=== PATIENT | female | born 2000 | race African-American/Black ===

== ENCOUNTER 2022-08-05 04:50 | Inpatient (IN) | payer MEDICAID ==
[~2022-08-05] VITALS: Ht 162.6 cm; Wt 70.3 kg
[2022-08-05] MEDS ORDERED: MORPHINE SULFATE 5 MG/ML VIAL IVP PRN (05:20)
[2022-08-05] MEDS ORDERED: METHYLERGONOVINE 0.2 MG/ML AMP IM PRN (05:20)
[2022-08-05] MEDS ORDERED: ONDANSETRON 4 MG/2 ML VIAL IVP PRN (05:20)
[2022-08-05] MEDS ORDERED: OXYTOCIN 20 UNITS in LACTATED RINGERS 1,000 ML IV SCH (05:20)
[2022-08-05] MEDS ORDERED: CARBOPROST 250 MCG/ML AMP IM PRN (05:20)
[2022-08-05] MEDS: LACTATED RINGERS 1,000 ML IV SCH ×4 (05:34→18:39)
[2022-08-05 05:54] LABS: BASOPHILS % (AUTO) 0.4 % (0.0-2.0); EOSINOPHILS # (AUTO) 0.1 K/uL (0-0.4); EOSINOPHILS % (AUTO) 0.5 % (0.0-4.0); HEMATOCRIT 28.1 % (36-48); HEMOGLOBIN 9.5 g/dL (12.0-16.0); LYMPHOCYTES # (AUTO) 1.3 K/uL (2.5-16.5); LYMPHOCYTES % (AUTO) 10.9 % (20.5-51.1); MEAN CORPUSCULAR HEMOGLOBIN 25 pg (27-31); MEAN CORPUSCULAR HGB CONC 34 g/dL (33-37); MEAN CORPUSCULAR VOLUME 75.1 fL (80-94); MONOCYTES # (AUTO) 0.9 K/uL (0.8-1.0); MONOCYTES % (AUTO) 7.7 % (1.7-9.3); NEUTROPHILS # (AUTO) 9.3 K/uL (1.8-7.7); NEUTROPHILS % (AUTO) 80.5 % (42.2-75.2); PLATELET COUNT (AUTO) 247 K/uL (140-450); RED BLOOD CELL COUNT(AUTO) 3.75 MIL/uL (4.20-5.40); RED CELL DISTRIBUTION WIDTH 15.2 % (11.6-13.7); WHITE BLOOD COUNT (AUTO) 11.6 K/uL (4.8-10.8)
[2022-08-05 06:02] VITALS: BP 119/76
[2022-08-05] MEDS ORDERED: FERR325E14 PO (06:02)
[2022-08-05] MEDS ORDERED: PREN-497 PO (06:02)
[2022-08-05 06:20] LABS: APPEARANCE,URINE CLEAR (CLEAR); BILIRUBIN,URINE NEGATIVE (NEGATIVE); BLOOD, URINE 1+ (NEGATIVE); COLOR,URINE YELLOW (YELLOW); LEUKOCYTE ESTERASE ,URINE 1+ (NEGATIVE); NITRITE, URINE NEGATIVE (NEGATIVE); UGLUCOSE NEGATIVE (NEGATIVE)
[2022-08-05 06:22] LABS: PROTHROMBIN TIME 9.8 secs (10.8-13.4)
[2022-08-05 06:24] LABS: ALBUMIN 2.9 g/dL (3.4-5.0); CARBON DIOXIDE 23.8 mmol/L (21-32); CREATININE 0.5 mg/dL (0.6-1.3); POTASSIUM 3.8 mmol/L (3.5-5.1); TOTAL BILIRUBIN 0.4 mg/dL (0.0-1.0)
[2022-08-05 06:37] LABS: BARBITURATE, URINE NEGATIVE ng/ml (NEG <=200); BENZODIAZEPINE, URINE NEGATIVE ng/mL (NEG <=200); CANNABINOID, URINE NEGATIVE ng/mL (NEG <=50); COCAINE, URINE NEGATIVE ng/mL (NEG <=300); OPIATE, URINE NEGATIVE ng/mL (NEG <=2000); PHENCYCLIDINE SCREEN,URINE NEGATIVE ng/mL (NEG <=25)
[2022-08-05] MEDS ORDERED: TERBUTALINE 1 MG/ML VIAL SUBQ ONE (06:46)
[2022-08-05 07:06] LABS: OTHER CASTS, URINE None Seen /LPF (None Seen)
[2022-08-05] MEDS: TERBUTALINE 1 MG/ML VIAL SUBQ SCH ×2 (07:10→07:29)
[2022-08-05] MEDS ORDERED: fentaNYL citrate 0.05 MG/ML VIAL ONE (07:55)
[2022-08-05] MEDS ORDERED: ROPIVACAINE 0.2%/NS PREMIX 200 ML EPI ONE (07:56)
--- NOTE | 2022-08-05 09:45 | NUR ---
PATIENT HAS BEEN SCREENED AND CATEGORIZED LOW NUTRITION RISK. PATIENT WILL BE SEEN WITHIN 7 DAYS OF ADMISSION. 08/12/22 REVIEWED BY LIZ [address]
[2022-08-05] MEDS ORDERED: OXYTOCIN 20 UNITS/LR PREMIX 1,000 ML IV ONE (16:15)
[2022-08-05] MEDS ORDERED: MISOPROSTOL 200 MCG TAB ONE (20:09)
[2022-08-05] MEDS ORDERED: bisacodyL 5 MG TABEC PO PRN (21:25)
[2022-08-05] MEDS ORDERED: OXYTOCIN 10 UNITS/ML VIAL IM PRN (21:25)
[2022-08-05] MEDS ORDERED: MEASLES, MUMPS, AND RUBELLA 1 VIAL SQVAC ONE (21:25)
[2022-08-05] MEDS ORDERED: SIMETHICONE 80 MG TAB.CHEW PO PRN (21:25)
[2022-08-05] MEDS ORDERED: DOCUSATE SODIUM 100 MG GELCAP PO PRN (21:25)
[2022-08-05] MEDS ORDERED: BENZOCAINE/MENTHOL 20%-0.5% 60 GM CAN TP PRN (21:25)
[2022-08-05] MEDS: IBUPROFEN 600 MG TAB PO PRN (21:50)
[2022-08-06] MEDS: IBUPROFEN 800 MG TAB PO PRN ×2 (04:45→20:01)
[2022-08-06 07:53] LABS: HEMATOCRIT 23.8 % (36-48)
[2022-08-06] MEDS: IBUPROFEN 600 MG TAB PO PRN (09:12)
[2022-08-07] MEDS: IBUPROFEN 800 MG TAB PO PRN ×2 (02:56→13:41)
== END 2022-08-07 17:55 | disposition home or self-care (01) | DRG 560 ==
LOC: MLD 04:50 → MFCC 23:27
PROVIDERS: ADMIT Obstetrics & Gynecology; ATTEND Obstetrics & Gynecology
PROC: 10E0XZZ Delivery of Products of Conception, External Approach (ICD-10-PCS; principal; 2022-08-05)
PROC: 3E0R3BZ Introduction of Anesthetic Agent into Spinal Canal, Percutaneous Approach (ICD-10-PCS; 2022-08-05)
PROC: 00HU33Z Insertion of Infusion Device into Spinal Canal, Percutaneous Approach (ICD-10-PCS; 2022-08-05)
DX: O90.81 Anemia of the puerperium (principal); Z37.0 Single live birth; D64.9 Anemia, unspecified; Z20.822 Contact with and (suspected) exposure to COVID-19; Z3A.39 39 weeks gestation of pregnancy
CPT/HCPCS: 36415; 51702; 59409; 80053; 80305; 81001; 85018; 85025; 85610; 85730; 86592; 86886; 86900; 86901; 87086; J2210; J2590; J2795; J3010; J3105; J7120